=== PATIENT | male | born 1935 | race Caucasian/White ===

== ENCOUNTER → 2016-08-01 | Outpatient (REF) | payer MEDICARE ==
[~2016-08-01] MED LIST: CIPR500T3 PO; DOCU10CA PO; FLAG500T PO; LISI10TA4 PO; PERCOCET PO; REQU0.5T PO; REQU1TAB16 PO; ROPI1TAB PO; ROPI8TAB PO; TYLE167L PO; VITA1TAB23 PO; ZEST1TAB6 PO
== END ==
LOC: CANPREREF → M SFHCPLAZ 11:03
PROVIDERS: ATTEND Internal Medicine
DX: G47.34 Idiopathic sleep related nonobstructive alveolar hypoventilation (principal); I10 Essential (primary) hypertension; Z53.8 Procedure and treatment not carried out for other reasons

== ENCOUNTER → 2016-12-08 | Outpatient (REF) | payer MEDICARE ==
[2016-12-08 18:20] LABS: BASO # 0.1 K/mm3 (0.0-0.2); BASO % 0.7 % (0.0-1.0); EOS # 0.4 K/mm3 (0.0-0.50); EOS % 3.7 % (0.0-3.0); LARGE UNSTAINED CELL # 0.2 K/mm3 (0.0-0.4); LARGE UNSTAINED CELL % 1.8 % (0.0-4.0); LYMPH % 18.5 % (24.0-44.0); MEAN CORPUSCULAR HEMOGLOBIN 30.7 pg (27.0-33.0); MEAN CORPUSCULAR VOLUME 93.2 fl (80.0-96.0); MONO # 0.7 K/mm3 (0.0-0.8); MONO % 6.7 % (0.0-5.0); NEUTROPHILS # 6.9 K/mm3 (1.8-7.7); NEUTROPHILS % 68.6 % (36.0-66.0); PLATELET COUNT, AUTOMATED 235 k/mm3 (150-450); RED CELL DISTRIBUTION WIDTH 13.6 % (11.5-14.5); WHITE BLOOD COUNT 10.1 K/mm3 (4.0-10.0)
[2016-12-08 18:46] LABS: CALCIUM LEVEL 8.9 MG/DL (8.8-10.2); CREATININE FOR GFR 2.45 MG/DL (0.70-1.30); GLOMERULAR FILTRATION RATE 27.1 (>35); POTASSIUM SERUM 4.6 MEQ/L (3.5-5.1)
== END ==
LOC: M LAB REF 16:51
PROVIDERS: ATTEND Physician Assistant
DX: J18.9 Pneumonia, unspecified organism (principal)

== ENCOUNTER → 2016-12-29 | Outpatient (REF) | payer MEDICARE | LOC: M SFHCPLAZ 12:44 | PROVIDERS: ATTEND Internal Medicine | DX: R30.0 Dysuria (principal) ==

== ENCOUNTER → 2017-02-05 | Outpatient (REF) | payer MEDICARE ==
[~2017-02-05] MED LIST changes: -REQU0.5T PO; +REQU1TAB15 PO
[2017-02-05 14:08] LABS: MEAN CORPUSCULAR HEMOGLOBIN 30.3 pg (27.0-33.0); MEAN CORPUSCULAR HGB CONC 32.6 g/dl (32.0-36.5); MEAN CORPUSCULAR VOLUME 92.9 fl (80.0-96.0); RED CELL DISTRIBUTION WIDTH 13.8 % (11.5-14.5); WHITE BLOOD COUNT 8.9 K/mm3 (4.0-10.0)
[2017-02-05 14:42] LABS: FOLATE 7.6 NG/ML
[2017-02-05 14:52] LABS: ALBUMIN 3.8 GM/DL (3.2-5.2); ALBUMIN/GLOBULIN RATIO 0.9 (1.00-1.93); BILIRUBIN,TOTAL 0.3 MG/DL (0.2-1.0); CREATININE FOR GFR 3.42 MG/DL (0.70-1.30); GLOMERULAR FILTRATION RATE 18.5 (>35); POTASSIUM SERUM 5.1 MEQ/L (3.5-5.1)
== END ==
LOC: M SFHCPLAZ 11:11 → M LABDRAW1 11:11
PROVIDERS: ATTEND Internal Medicine
DX: R53.83 Other fatigue (principal); N18.3 Chronic kidney disease, stage 3 (moderate); E78.00 Pure hypercholesterolemia, unspecified
CPT/HCPCS: 36415; 80053; 80061; 81001; 82607; 82746; 83970; 84443; 85027; 87088; 87186; G0463

== ENCOUNTER → 2017-02-14 | Outpatient (REF) | payer MEDICARE ==
[2017-02-14 12:06] LABS: CREATININE FOR GFR 2.68 MG/DL (0.70-1.30); GLOMERULAR FILTRATION RATE 24.5 (>35); MAGNESIUM LEVEL 2.4 MG/DL (1.8-2.4)
[2017-02-14 12:08] LABS: POTASSIUM SERUM 5.3 MEQ/L (3.5-5.1)
== END ==
LOC: M SFHCPLAZ 09:45
PROVIDERS: ATTEND Internal Medicine
DX: N18.3 Chronic kidney disease, stage 3 (moderate) (principal); R33.9 Retention of urine, unspecified
CPT/HCPCS: 36415; 80048; 83735; 83970; 87088; 87186; G0463

== ENCOUNTER → 2017-07-18 | Outpatient (REF) | payer MEDICARE ==
[2017-07-18 14:12] LABS: TOTAL PROTEIN,RANDOM URINE 50.5 MG/DL (0.0-12.0)
[2017-07-18 18:29] LABS: CREATININE, URINE 41.1 MG/DL; MAU/CREAT RATIO 428.2 MCG/MG (0.0-30.0)
== END ==
LOC: M LAB REF 13:26
DX: N18.4 Chronic kidney disease, stage 4 (severe) (principal); R80.9 Proteinuria, unspecified
CPT/HCPCS: 84156

== ENCOUNTER → 2017-08-07 | Outpatient (REF) | payer MEDICARE ==
[2017-08-07 12:49] LABS: HEMATOCRIT 37.3 % (42.0-52.0); HEMOGLOBIN 11.9 g/dl (14.0-18.0); MEAN CORPUSCULAR HEMOGLOBIN 29.8 pg (27.0-33.0); MEAN CORPUSCULAR HGB CONC 31.9 g/dl (32.0-36.5); MEAN CORPUSCULAR VOLUME 93.3 fl (80.0-96.0); PLATELET COUNT, AUTOMATED 228 10^3/uL (150-450); RED CELL DISTRIBUTION WIDTH 13.2 % (11.5-14.5); WHITE BLOOD COUNT 8.5 10^3/uL (4.0-10.0)
[2017-08-07 13:08] LABS: PTH INTACT 91.2 PG/ML (14.0-72.0)
[2017-08-07 13:29] LABS: ALBUMIN 3.7 GM/DL (3.2-5.2); ALBUMIN/GLOBULIN RATIO 0.95 (1.00-1.93); ALKALINE PHOSPHATASE 90 U/L (45-117); ALT/SGPT 11 U/L (12-78); ANION GAP 11 MEQ/L (8-16); AST/SGOT 10 U/L (7-37); BILIRUBIN,TOTAL 0.3 MG/DL (0.2-1.0); BLOOD UREA NITROGEN 65 MG/DL (7-18); CALCIUM LEVEL 8.8 MG/DL (8.8-10.2); CARBON DIOXIDE LEVEL 23 MEQ/L (21-32); CHLORIDE LEVEL 107 MEQ/L (98-107); CHOLESTEROL LEVEL 164 MG/DL (<200); CREATININE FOR GFR 2.97 MG/DL (0.70-1.30); GLOMERULAR FILTRATION RATE 21.7 (>35); GLUCOSE, FASTING 98 MG/DL (70-100); HDL CHOLESTEROL 25 MG/DL (>40); MAGNESIUM LEVEL 2.4 MG/DL (1.8-2.4); NON-HDL-C 139 MG/DL; POTASSIUM SERUM 4.9 MEQ/L (3.5-5.1); SODIUM LEVEL 141 MEQ/L (136-145); TOTAL PROTEIN 7.6 GM/DL (6.4-8.2); TRIGLYCERIDES LEVEL 330 MG/DL (<150)
== END ==
LOC: M SFHCPLAZ 11:37
DX: N18.3 Chronic kidney disease, stage 3 (moderate) (principal); E78.00 Pure hypercholesterolemia, unspecified
CPT/HCPCS: 83735

== ENCOUNTER → 2017-10-01 | Outpatient (REF) | payer MEDICARE ==
[2017-10-01 17:52] LABS: FERRITIN 197 NG/ML (26-388); IRON (FE) 61 UG/DL (65-175); TOTAL IRON BINDING CAPACITY 305 UG/DL (250-450)
== END ==
LOC: M LAB REF 17:03
DX: N18.4 Chronic kidney disease, stage 4 (severe) (principal); R33.9 Retention of urine, unspecified; D63.1 Anemia in chronic kidney disease
CPT/HCPCS: 83550

== ENCOUNTER → 2018-02-05 | Outpatient (REF) | payer MEDICARE ==
[2018-02-05 20:29] LABS: APPEARANCE, URINE TURBID (CLEAR); BACTERIA, URINE AUTO 2+ (NEGATIVE); BILIRUBIN, URINE AUTO NEGATIVE (NEGATIVE); BLOOD, URINE BLOOD 3+ (NEGATIVE); COLOR, URINE YELLOW (YELLOW); GLUCOSE, URINE (UA) AUTO NEGATIVE (NEGATIVE); KETONE, URINE AUTO NEGATIVE (NEGATIVE); LEUKOCYTE ESTERASE, URINE AUTO 3+ (NEGATIVE); NITRITE, URINE AUTO NEGATIVE (NEGATIVE); PROTEIN, URINE AUTO 2+ mg/dL (NEGATIVE); RBC, URINE AUTO 132 /HPF (0-3); SPECIFIC GRAVITY URINE AUTO 1.012 (1.002-1.035); SQUAMOUS EPITHELIAL CELL UR AU 0 /HPF (0-6); UROBILINOGEN, URINE AUTO 0.2 mg/dL (0.0-2.0); WBC, URINE AUTO TNTC /HPF (0-3)
== END ==
LOC: M SFHCPLAZ 11:25
DX: R30.0 Dysuria (principal)
CPT/HCPCS: 81001

== ENCOUNTER 2018-06-14 13:34 | Inpatient (IN) | payer MEDICARE ==
[2018-06-14 14:08] LABS: VENOUS BASE EXCESS -9.3 (-2.0-2.0); VENOUS HCO3 17.3 MEQ/L (23.0-27.0); VENOUS O2 SATURATION 73.3 % (60.0-80.0); VENOUS PARTIAL PRESSURE CO2 40.5 mmHg (38.0-50.0); VENOUS PARTIAL PRESSURE O2 44.5 mmHg (30.0-50.0); VENOUS PH 7.249 UNITS (7.330-7.430); VENOUS STANDARD HCO3 16.6 MEQ/L; VENOUS TOTAL CO2 18.6 MEQ/L (24.0-28.0)
[2018-06-14 14:08] LABS: BEDSIDE GLUCOSE 116 MG/DL (83-110)
[2018-06-14 14:18] LABS: BASO % 0.4 % (0.0-1.0); EOS # 0.2 10^3/uL (0.0-0.50); EOS % 1.5 % (0.0-3.0); HEMATOCRIT 35.8 % (42.0-52.0); IMMATURE GRANULOCYTE % 0.3 % (0-3.0); LYMPH # 1.1 10^3/uL (1.5-4.5); LYMPH % 10.3 % (24.0-44.0); MEAN CORPUSCULAR HEMOGLOBIN 28.6 pg (27.0-33.0); MEAN CORPUSCULAR HGB CONC 30.7 g/dl (32.0-36.5); MONO # 0.7 10^3/uL (0.0-0.8); MONO % 7.2 % (0.0-5.0); NEUTROPHILS # 8.2 10^3/uL (1.8-7.7); NEUTROPHILS % 80.3 % (36.0-66.0); RED BLOOD COUNT 3.85 10^6/uL (4.30-6.10); RED CELL DISTRIBUTION WIDTH 14.7 % (11.5-14.5); WHITE BLOOD COUNT 10.2 10^3/uL (4.0-10.0)
[2018-06-14 14:40] LABS: AMMONIA 39 uMOL/L (<32); LACTIC ACID SEPSIS PROTOCOL 1.4 MMOL/L (0.4-2.0)
[2018-06-14 14:48] LABS: ALBUMIN 3.1 GM/DL (3.2-5.2); ALBUMIN/GLOBULIN RATIO 0.69 (1.00-1.93); ALKALINE PHOSPHATASE 103 U/L (45-117); ALT/SGPT 26 U/L (12-78); ANION GAP 12 MEQ/L (8-16); AST/SGOT 29 U/L (7-37); BILIRUBIN,DIRECT 0.1 MG/DL (0.0-0.2); BILIRUBIN,TOTAL 0.4 MG/DL (0.2-1.0); BLOOD UREA NITROGEN 97 MG/DL (7-18); C REACTIVE PROTEIN QUANTITATIV 5.29 MG/DL (0.00-0.30); CALCIUM LEVEL 8.2 MG/DL (8.8-10.2); CARBON DIOXIDE LEVEL 19 MEQ/L (21-32); CHLORIDE LEVEL 115 MEQ/L (98-107); CPK CREATINE PHOSPHOKINASE 212 U/L (39-308); CREATININE FOR GFR 4.11 MG/DL (0.70-1.30); GLOMERULAR FILTRATION RATE 14.9 (>35); GLUCOSE, FASTING 113 MG/DL (70-100); POTASSIUM SERUM 4.7 MEQ/L (3.5-5.1); SODIUM LEVEL 146 MEQ/L (136-145); TOTAL PROTEIN 7.6 GM/DL (6.4-8.2); TROPONIN I 0.11 NG/ML (< 0.10)
[2018-06-14 15:02] LABS: ERYTHROCYTE SEDIMENTATION RATE 23 mm/hr (0-20)
[2018-06-14] MEDS: NS 500 ML IV (17:16)
[2018-06-14 17:18] LABS: AMORPHOUS SEDIMENT RFX LARGE (NEGATIVE); KETONE, URINE AUTO RFX NEGATIVE (NEGATIVE); LEUKOCYTE ESTERASE UR AUTO RFX 3+ (NEGATIVE); NITRITE, URINE AUTO RFX NEGATIVE (NEGATIVE); RBC, URINE AUTO RFX 40 /HPF (0-3); SQUAM EPITHELIAL CELL UR AURFX 0 /HPF (0-6); WBC, URINE AUTO RFX TNTC /HPF (0-3); YEAST LIKE CELL URINE AUTO RFX SMALL
[2018-06-14] MEDS ORDERED: NS 0.45% 1,000 ML IV (17:30)
[2018-06-14 18:57] LABS: AMPHETAMINES LEVEL URINE NEGATIVE (NEGATIVE); BARBITURATES URINE NEGATIVE (NEGATIVE); BENZODIAZEPINES URINE NEGATIVE (NEGATIVE); CANNABINOIDS URINE NEGATIVE (NEGATIVE); COCAINE METABOLITE URINE NEGATIVE (NEGATIVE); METHADONE URINE NEGATIVE (NEGATIVE); OPIATES URINE NEGATIVE (NEGATIVE); PHENCYCLIDINE URINE NEGATIVE (NEGATIVE)
[2018-06-14] MEDS: cefTRIAXone SOD 1 GM in D5W MINI-BAG PLUS 50 ML IV (19:07)
[2018-06-14] MEDS ORDERED: rOPINIRole 2MG TAB PO (19:30)
[2018-06-14] MEDS ORDERED: LORazepam 0.5 MG TAB PO (19:30)
[2018-06-14] MEDS: **hydrALAZINE** 10 MG TAB PO ×3 (21:00→22:19)
[2018-06-15 06:16] LABS: ALBUMIN 2.6 GM/DL (3.2-5.2); ALBUMIN/GLOBULIN RATIO 0.72 (1.00-1.93); ALKALINE PHOSPHATASE 80 U/L (45-117); ALT/SGPT 21 U/L (12-78); ANION GAP 9 MEQ/L (8-16); AST/SGOT 20 U/L (7-37); BILIRUBIN,TOTAL 0.3 MG/DL (0.2-1.0); BLOOD UREA NITROGEN 86 MG/DL (7-18); CALCIUM LEVEL 7.7 MG/DL (8.8-10.2); CARBON DIOXIDE LEVEL 21 MEQ/L (21-32); CHLORIDE LEVEL 116 MEQ/L (98-107); CREATININE FOR GFR 3.81 MG/DL (0.70-1.30); GLOMERULAR FILTRATION RATE 16.3 (>35); GLUCOSE, FASTING 117 MG/DL (70-100); POTASSIUM SERUM 4.5 MEQ/L (3.5-5.1); SODIUM LEVEL 146 MEQ/L (136-145); TOTAL PROTEIN 6.2 GM/DL (6.4-8.2)
[2018-06-15] MEDS: **hydrALAZINE** 10 MG TAB PO ×4 (09:00→21:00)
[2018-06-15] MEDS: cefTRIAXone SOD 1 GM in D5W MINI-BAG PLUS 50 ML IV (09:33)
[2018-06-15] MEDS: SPIRONOLACTONE 25 MG TAB PO (14:23)
[2018-06-15] MEDS: rOPINIRole 2MG TAB PO (16:45)
[2018-06-15] MEDS: FUROSEMIDE 100 MG/10 ML VIAL (J1940) IV (16:47)
[2018-06-16 05:44] LABS: BASO # 0.1 10^3/uL (0.0-0.2); BASO % 0.6 % (0.0-1.0); EOS # 0.4 10^3/uL (0.0-0.50); EOS % 3.8 % (0.0-3.0); IMMATURE GRANULOCYTE % 0.3 % (0-3.0); LYMPH # 1.1 10^3/uL (1.5-4.5); LYMPH % 10.6 % (24.0-44.0); MEAN CORPUSCULAR HEMOGLOBIN 28.2 pg (27.0-33.0); MEAN CORPUSCULAR HGB CONC 30.3 g/dl (32.0-36.5); MEAN CORPUSCULAR VOLUME 93.2 fl (80.0-96.0); MONO # 0.9 10^3/uL (0.0-0.8); MONO % 8.4 % (0.0-5.0); NEUTROPHILS # 7.9 10^3/uL (1.8-7.7); NEUTROPHILS % 76.3 % (36.0-66.0); RED BLOOD COUNT 3.54 10^6/uL (4.30-6.10); RED CELL DISTRIBUTION WIDTH 14.8 % (11.5-14.5); WHITE BLOOD COUNT 10.4 10^3/uL (4.0-10.0)
[2018-06-16 05:56] LABS: ANION GAP 9 MEQ/L (8-16); BLOOD UREA NITROGEN 86 MG/DL (7-18); CALCIUM LEVEL 7.9 MG/DL (8.8-10.2); CARBON DIOXIDE LEVEL 21 MEQ/L (21-32); CHLORIDE LEVEL 114 MEQ/L (98-107); GLOMERULAR FILTRATION RATE 17.4 (>35); GLUCOSE, FASTING 104 MG/DL (70-100); POTASSIUM SERUM 4.4 MEQ/L (3.5-5.1); SODIUM LEVEL 144 MEQ/L (136-145)
[2018-06-16 06:59] LABS: PLATELET COUNT, AUTOMATED 60 10^3/uL (150-450)
[2018-06-16 07:00] LABS: IMMATURE PLATELET FRACTION % 4.6 % (0.0-10.9)
[2018-06-16] MEDS: **hydrALAZINE** 10 MG TAB PO ×4 (08:56→20:47)
[2018-06-16] MEDS: SPIRONOLACTONE 25 MG TAB PO (08:56)
[2018-06-16] MEDS: FUROSEMIDE 100 MG/10 ML VIAL (J1940) IV ×4 (08:56→23:28)
[2018-06-16] MEDS ORDERED: ENOXAPARIN 30 MG/0.3 ML SYR (J1650) SC (09:00)
[2018-06-16] MEDS: cefTRIAXone SOD 1 GM in D5W MINI-BAG PLUS 50 ML IV (09:34)
[2018-06-16] MEDS: rOPINIRole 2MG TAB PO (17:26)
[2018-06-16] MEDS: TAMSULOSIN 0.4 MG CAP PO (20:48)
[2018-06-17 05:59] LABS: BASO # 0.1 10^3/uL (0.0-0.2); BASO % 0.5 % (0.0-1.0); EOS # 0.4 10^3/uL (0.0-0.50); EOS % 4.6 % (0.0-3.0); HEMATOCRIT 33.4 % (42.0-52.0); HEMOGLOBIN 10.5 g/dl (13.5-17.5); IMMATURE GRANULOCYTE % 0.3 % (0-3.0); LYMPH # 1.1 10^3/uL (1.5-4.5); MEAN CORPUSCULAR HEMOGLOBIN 28.5 pg (27.0-33.0); MEAN CORPUSCULAR HGB CONC 31.4 g/dl (32.0-36.5); MEAN CORPUSCULAR VOLUME 90.5 fl (80.0-96.0); MONO # 0.8 10^3/uL (0.0-0.8); MONO % 8.5 % (0.0-5.0); NEUTROPHILS # 6.8 10^3/uL (1.8-7.7); NEUTROPHILS % 74.1 % (36.0-66.0); RED BLOOD COUNT 3.69 10^6/uL (4.30-6.10); RED CELL DISTRIBUTION WIDTH 15.1 % (11.5-14.5); WHITE BLOOD COUNT 9.1 10^3/uL (4.0-10.0)
[2018-06-17 06:19] LABS: ANION GAP 9 MEQ/L (8-16); BLOOD UREA NITROGEN 81 MG/DL (7-18); CALCIUM LEVEL 8.2 MG/DL (8.8-10.2); CARBON DIOXIDE LEVEL 23 MEQ/L (21-32); CHLORIDE LEVEL 113 MEQ/L (98-107); CREATININE FOR GFR 3.55 MG/DL (0.70-1.30); GLOMERULAR FILTRATION RATE 17.7 (>35); GLUCOSE, FASTING 103 MG/DL (70-100); POTASSIUM SERUM 4.1 MEQ/L (3.5-5.1); SODIUM LEVEL 145 MEQ/L (136-145)
[2018-06-17 06:46] LABS: PLATELET COUNT, AUTOMATED 72 10^3/uL (150-450)
[2018-06-17 06:47] LABS: PLATELET F 2.6
[2018-06-17 06:48] LABS: IMMATURE PLATELET FRACTION % 3.7 % (0.0-10.9)
[2018-06-17] MEDS: cefTRIAXone SOD 1 GM in D5W MINI-BAG PLUS 50 ML IV (08:20)
[2018-06-17] MEDS: FUROSEMIDE 100 MG/10 ML VIAL (J1940) IV ×3 (08:21→23:41)
[2018-06-17] MEDS: SPIRONOLACTONE 25 MG TAB PO (08:22)
[2018-06-17] MEDS: **hydrALAZINE** 10 MG TAB PO ×4 (08:23→20:47)
[2018-06-17] MEDS: rOPINIRole 2MG TAB PO (16:59)
[2018-06-17] MEDS: TAMSULOSIN 0.4 MG CAP PO (20:48)
[2018-06-18] MEDS: LevoFLOXacin 250 MG TABLET PO (05:16)
[2018-06-18 06:37] LABS: BASO # 0.1 10^3/uL (0.0-0.2); BASO % 0.6 % (0.0-1.0); EOS # 0.4 10^3/uL (0.0-0.50); EOS % 4.9 % (0.0-3.0); HEMOGLOBIN 10.2 g/dl (13.5-17.5); IMMATURE GRANULOCYTE % 0.3 % (0-3.0); LYMPH # 1.3 10^3/uL (1.5-4.5); LYMPH % 14.8 % (24.0-44.0); MEAN CORPUSCULAR HEMOGLOBIN 28.2 pg (27.0-33.0); MEAN CORPUSCULAR HGB CONC 30.9 g/dl (32.0-36.5); MEAN CORPUSCULAR VOLUME 91.2 fl (80.0-96.0); MONO # 0.8 10^3/uL (0.0-0.8); MONO % 8.9 % (0.0-5.0); NEUTROPHILS # 6.2 10^3/uL (1.8-7.7); NEUTROPHILS % 70.5 % (36.0-66.0); PLATELET COUNT, AUTOMATED 81 10^3/uL (150-450); RED BLOOD COUNT 3.62 10^6/uL (4.30-6.10); RED CELL DISTRIBUTION WIDTH 14.8 % (11.5-14.5); WHITE BLOOD COUNT 8.8 10^3/uL (4.0-10.0)
[2018-06-18 06:38] LABS: IMMATURE PLATELET FRACTION % 5.4 % (0.0-10.9)
[2018-06-18 07:02] LABS: ANION GAP 9 MEQ/L (8-16); BLOOD UREA NITROGEN 70 MG/DL (7-18); CALCIUM LEVEL 7.7 MG/DL (8.8-10.2); CARBON DIOXIDE LEVEL 24 MEQ/L (21-32); CHLORIDE LEVEL 111 MEQ/L (98-107); CREATININE FOR GFR 3.33 MG/DL (0.70-1.30); GLUCOSE, FASTING 94 MG/DL (70-100); POTASSIUM SERUM 4.1 MEQ/L (3.5-5.1); SODIUM LEVEL 144 MEQ/L (136-145)
[2018-06-18] MEDS: SPIRONOLACTONE 25 MG TAB PO (09:00)
[2018-06-18] MEDS: METOPROLOL SUCC *XL* 12.5MG PER 1/2 TAB (TopROL *XL*) PO (09:45)
[2018-06-18] MEDS: TORSEMIDE 20 MG TAB PO (09:45)
[2018-06-18] MEDS: rOPINIRole 2MG TAB PO (17:28)
== END 2018-06-18 19:03 | disposition home or self-care (01) | DRG 682 ==
LOC: M ED 13:34 → M ED INP 19:19 → M MSPAV 20:26
DX: N17.9 Acute kidney failure, unspecified (principal); I50.43 Acute on chronic combined systolic (congestive) and diastolic (congestive) heart failure; N39.0 Urinary tract infection, site not specified; I13.0 Hypertensive heart and chronic kidney disease with heart failure and stage 1 through stage 4 chronic kidney disease, or unspecified chronic kidney disease; N13.9 Obstructive and reflux uropathy, unspecified; N40.1 Benign prostatic hyperplasia with lower urinary tract symptoms; N18.4 Chronic kidney disease, stage 4 (severe); R33.9 Retention of urine, unspecified; B96.89 Other specified bacterial agents as the cause of diseases classified elsewhere; N13.30 Unspecified hydronephrosis; E78.5 Hyperlipidemia, unspecified; K21.9 Gastro-esophageal reflux disease without esophagitis; G25.81 Restless legs syndrome; Z88.8 Allergy status to other drugs, medicaments and biological substances; Z79.899 Other long term (current) drug therapy; Z95.0 Presence of cardiac pacemaker; Z91.19 Patient's noncompliance with other medical treatment and regimen; Z87.891 Personal history of nicotine dependence

== ENCOUNTER → 2018-06-26 | Outpatient (REF) | payer MEDICARE ==
[2018-06-26 19:34] LABS: FERRITIN 151 NG/ML (26-388); IRON (FE) 47 UG/DL (65-175); TOTAL IRON BINDING CAPACITY 294 UG/DL (250-450)
== END ==
LOC: M LAB REF 17:44
DX: N18.4 Chronic kidney disease, stage 4 (severe) (principal); D63.1 Anemia in chronic kidney disease
CPT/HCPCS: 83550

== ENCOUNTER → 2018-08-30 | Outpatient (REF) | payer MEDICARE ==
[~2018-08-30] MED LIST changes: +ALDA25TA2 PO; +CALC1CAP31 PO; +DEMA20TA6 PO; +FERR325T3 PO; +FLOM0.4C39 PO; +HYDR10TAB PO; +LEVA250T13 PO; +LORA0.5T11 PO; +METO1TAB32 PO; +REQU0.5T PO; -REQU1TAB15 PO; +ROPI2TAB PO; +TORS10TA3 PO; +TORS20TA2 PO; +TYLE1TAB5 PO; +VELT1POW PO
[2018-08-30 12:42] LABS: ALBUMIN 3.7 GM/DL (3.2-5.2); BILIRUBIN,TOTAL 0.3 MG/DL (0.2-1.0); CHOLESTEROL RISK RATIO 6.709 (<5); CREATININE FOR GFR 3.89 MG/DL (0.70-1.30); GLOMERULAR FILTRATION RATE 15.9 (>35); MAGNESIUM LEVEL 2.3 MG/DL (1.8-2.4); POTASSIUM SERUM 4.6 MEQ/L (3.5-5.1); TOTAL PROTEIN 7.8 GM/DL (6.4-8.2)
[2018-08-30 13:17] LABS: HEMOGLOBIN A1c 5.3 %
== END ==
LOC: M SFHCPLAZ 08:50
PROVIDERS: ATTEND Internal Medicine
DX: I10 Essential (primary) hypertension (principal); R73.01 Impaired fasting glucose; E78.00 Pure hypercholesterolemia, unspecified
CPT/HCPCS: 36415; 80053; 80061; 83036; 83735; G0463

== ENCOUNTER → 2018-09-17 | Outpatient (CLI) | payer MEDICARE ==
--- NOTE | 2018-09-17 17:07 | REP ---
Bilateral upper extremity arterial and venous Doppler ultrasound: History: End-stage renal disease. Vein and arterial mapping study. Sonographic findings: There is a left subclavian vein pacemaker noted. There is no evidence of venous thrombosis in the upper extremities on either side. We were not able to visualize the left cephalic vein in the upper arm level. The right brachial artery is noted to be duplicated in the upper arm with brachial artery 81 becoming the ulnar artery and brachial artery 08/02 becoming the radial artery. On the right at the forearm most of the ulnar artery blood flow enters a what appears to be a collateral. Low velocities are seen at the wrist bilaterally. No occlusion or high-grade stenosis is seen however. Right arm venous diameter chart: Upper humerus basilic vein 1.9 mm, cephalic vein 1.5 mm Lower humerus basilic 1.2 mm cephalic a 0.9 mm Upper forearm basilic 1.3 mm cephalic 1.0 mm Wrist basilic 0.7 mm, cephalic 0.9 mm Median cubital 2.1 mm Left arm venous diameter chart: Upper humerus basilic 2.9 mm, cephalic not seen Lower humerus basilic 2.0 mm cephalic not seen Upper forearm basilic 0.7 mm cephalic 1.0 mm Wrist basilic 1.0 mm cephalic 0.9 mm Median cubital 1.8 mm Right upper extremity arterial Doppler velocity and diameter chart: Axillary artery 70.1 cm/S, 5.7 mm Brachial artery 125/87 cm/S, 3.1/3.1 mm Radial artery 41.9 cm/sec, 2.2 mm Ulnar artery 26.5 cm/sec, 1.4 mm Left upper extremity arterial Doppler velocity and diameter chart: Left axillary artery 69.6 cm/S, 6.1 mm Brachial artery 90.9 cm/S, 4.0 mm Radial artery 27.8 centimeters per second, 1.5 mm Ulnar artery 45.6 centimeters per second, 1.7 mm Electronically Signed by Mauri Maxwell MD 09/17/2018 04:57 P
== END ==
LOC: M RAD 13:43
PROVIDERS: ATTEND Surgery Vascular Surgery
DX: N18.6 End stage renal disease (principal); Z95.0 Presence of cardiac pacemaker

== ENCOUNTER 2018-09-20 07:14 | Day surgery (SDC) | payer MEDICARE ==
[~2018-09-20] VITALS: Ht 188 cm; Wt 95.7 kg
[2018-09-20] MEDS ORDERED: fentaNYL 250 MCG/5 ML INJECTION (J3010) As Ordered ONE (08:04)
[2018-09-20] MEDS ORDERED: ONDANSETRON 4MG/2ML VIAL (J2405) As Ordered ONE (08:04)
[2018-09-20] MEDS ORDERED: dexameTHASONE 4 MG/ML 1ML VIAL (J1100) As Ordered ONE ×2 (08:04→08:13)
[2018-09-20] MEDS ORDERED: PROPOFOL 200 MG/20 ML VIAL As Ordered ONE (08:04)
[2018-09-20] MEDS ORDERED: LIDOCAINE 2% INJ 100 MG/5 ML SDV (FOR ANES.) As Ordered ONE (08:04)
[2018-09-20] MEDS ORDERED: MIDAZOLAM INJ 2 MG/2 ML VIAL (J2250) As Ordered ONE (08:04)
[2018-09-20] MEDS ORDERED: KETAMINE HCL 200 MG/20 ML VIAL As Ordered ONE (08:05)
[2018-09-20] MEDS ORDERED: ROCURONIUM BROMIDE 50 MG/5 ML VIAL As Ordered ONE (08:13)
[2018-09-20] MEDS ORDERED: HEPARIN SOD (PORCINE) 5000 UNITS/ML VIAL As Ordered ONE ×2 (08:45→10:09)
[2018-09-20] MEDS ORDERED: LIDOCAINE 1% SDV INJ 30 ML VIAL As Ordered ONE (08:45)
[2018-09-20] MEDS ORDERED: ISOVUE-300 61% 50ML VIAL (Q9967) As Ordered ONE (08:45)
[2018-09-20] MEDS ORDERED: BUPIVACAINE HCL 0.5% 30 ML VIAL As Ordered ONE (08:45)
[2018-09-20] MEDS ORDERED: BUPIVACAINE/EPIN 0.25% 30 ML VIAL As Ordered ONE (09:18)
[2018-09-20] MEDS ORDERED: NS 1,000 ML IV SCH ×2 (09:45→12:45)
[2018-09-20] MEDS ORDERED: ePHEDrine SULFATE 25 MG/5 ML(5MG/ML) SYRINGE As Ordered ONE (10:02)
[2018-09-20] MEDS ORDERED: PHENYLephrine HCL 500 MCG/5 ML (100MCG/ML) SYRINGE (J2370) As Ordered ONE (10:02)
[2018-09-20] MEDS ORDERED: PHENYLEPHRINE INJ 10MG/ML VIAL (J2370) As Ordered ONE (10:03)
[2018-09-20] MEDS ORDERED: PERCOCET PO (12:02)
--- NOTE | 2018-09-20 12:18 | ROOPDOC ---
[facility] Report Of Operation Report of Operation DATE OF PROCEDURE: 09/20/18 PREPROCEDURE DIAGNOSES: Stage IV renal insufficiency, progressing to stage V, requiring access for hemodialysis POSTPROCEDURE DIAGNOSES: Same PROCEDURE: Right brachial axillary AV graft placement SURGEON: Poonam Merritt MD ANESTHESIA: LMA and local INDICATION FOR PROCEDURE: Mr. Diaz is an 82-year-old gentleman with stage IV renal insufficiency rapidly progressing to stage V. We were asked urgently place and access in preparation for the patient to start dialysis. He did not have suitable veins for an AV fistula, so we selected to place a right brachial axillary AV graft. The patient is right-handed, but he has wires from his pacemaker and AICD on the left, which would obstruct his outflow. Thus, we selected the right upper extremity. Wrist, benefits and alternatives were explained to the patient. He was agreeable to proceed. Informed consent was obtained. PROCEDURE: The patient was brought to the OR in stable condition. LMA anesthesia was administered along with antibiotics without complications. His right upper extremity and axilla were prepped and draped in sterile fashion. A timeout was performed. Local anesthesia was a contact center consultant to the skin and subcutaneous tissue over the brachial artery just proximal to the antecubital crease. Skin knife was used to make a longitudinal incision over the artery and this was carried down to the subcutaneous tissue with Bovie cautery. The brachial artery was identified and skeletonized and Vesseloops replace proximally and distally. Local anesthesia was semesters to skin and subcutaneous tissue over the axillary artery pulse. A skin knife was used to make an incision over the artery pulse. This was carried down to subcutaneous tissue with Bovie cautery and the axillary vein was identified. Care was taken to avoid and preserve the nerves. Vesseloops were placed around the distal branches of the vein, and proximally, the vein was skeletonized to allow for bulldog clamp. 3000 units of heparin was given and allowed to circulate by anesthesia. A 4 mm to 6 mm tapered Accu seal Wishon-Lawson graft was tunneled from the antecubital incision to the axillary incision. The distal 4 mm and was beveled for arterial anastomosis. We secured the vessel loops on the brachial artery and a 5 mm arteriotomy was made. The graft was anastomosis to the artery and an end to side fashion with 5-0 hemostatic Prolene suture. Before the final sutures were placed, the inflow and outflow artery were flushed and a clamp was placed on the graft. We then irrigated with heparinized saline and placed her final sutures. Before suturing, we did restore flow through the artery and found good hemostasis. We then secured our Vesseloops on the axillary vein distally and placed a bulldog clamp proximally. A venotomy was made in the proximal end of the graft was beveled for anastomosis. 5-0 Prolene hemostatic suture was used to anastomose the graft to the vein in an end-to-side fashion. Before the final sutures are placed, we flushed the inflow and outflow of the vein and irrigated with Saline, we also flushed from the arterial site as well. We then placed her final sutures and flow was restored through the vein. Good hemostasis was noted at our anastomosis. We irrigated both incisions with copious amounts of saline. We checked the flow at the hand with both palpation and a Doppler. The radial pulse was palpable, the ulnar signal was dopplerable and there was a good Doppler signal across the palmar arch. There was good flow through the graft on Doppler. We then closed the arterial incision with 2 layers of running Vicryl suture and the skin was closed with a running subcuticular Monocryl suture. The wound was clean and dry Mastisol and Steri-Strips were placed. The length of the wound. In the axilla, 4 layers of running Vicryl suture were used to approximate the tissues. 2 layers were below the graft, 2 layers were above the graft, and the skin was closed a running subcuticular Monocryl suture. Mastisol and Steri-Strips were used to dress the wound. Gauze and Tegaderms were placed over the Steri-Strips her final dressing. The patient was then allowed to awaken from anesthesia and taken to PACU in stable condition. ESTIMATED BLOOD LOSS: Approximately 100 mL. DRAINS: None SPECIMENS: None COMPLICATIONS: None REMARKS: 4 mm to 6 mm Accu seal Wishon-Lawson tapered graft POONAM MERRITT MD Sep 20, 2018 12:18
[2018-09-20] MEDS ORDERED: NORCO, ANEXSIA 5/325MG TABLET (HYDROcodone/ACETAMINOPHEN) As Ordered ONE (12:33)
[2018-09-20] MEDS ORDERED: ONDANSETRON 4MG/2ML VIAL (J2405) IV PRN (12:45)
[2018-09-20] MEDS ORDERED: fentaNYL 100 MCG/2 ML INJECTION (J3010) IV PRN (12:45)
[2018-09-20] MEDS ORDERED: NORCO, ANEXSIA 5/325MG TABLET (HYDROcodone/ACETAMINOPHEN) PO PRN (12:45)
[2018-09-20 14:46] VITALS: BP 122/70
--- NOTE | 2018-09-21 17:28 | ECGEPIP ---
Stationary ECG Study [facility] Test Date: 2018-09-20 Pat Name: HARMONY NORTH Department: Room: - Gender: M Conductor Sleeping Car: [facility] : 1935 Requested By: Robles Lopez Order Number: [id number] Reading MD: Mahin Palacio Measurements Intervals [place] Rate: 62 P: -87 MI: 146 QRS: 210 QRSD: 198 T: 21 QT: 486 QTc: 496 Interpretive Statements ELECTRONIC ATRIAL PACEMAKER ELECTRONIC VENTRICULAR PACEMAKER ABNORMAL RHYTHM ECG Electronically Signed On 09-21-2018 17:28:33 EST by Mahin Palacio
== END 2018-09-20 14:59 | disposition home or self-care (01) ==
LOC: M SDC 07:14
PROVIDERS: ATTEND Surgery Vascular Surgery
DX: N18.4 Chronic kidney disease, stage 4 (severe) (principal); I13.0 Hypertensive heart and chronic kidney disease with heart failure and stage 1 through stage 4 chronic kidney disease, or unspecified chronic kidney disease; F41.9 Anxiety disorder, unspecified; F32.9 Major depressive disorder, single episode, unspecified; I50.42 Chronic combined systolic (congestive) and diastolic (congestive) heart failure; E87.5 Hyperkalemia; D63.1 Anemia in chronic kidney disease; N25.81 Secondary hyperparathyroidism of renal origin; N13.9 Obstructive and reflux uropathy, unspecified; R19.7 Diarrhea, unspecified; K21.9 Gastro-esophageal reflux disease without esophagitis; G25.81 Restless legs syndrome; R06.02 Shortness of breath; M12.9 Arthropathy, unspecified; N40.0 Benign prostatic hyperplasia without lower urinary tract symptoms; T88.59XD Other complications of anesthesia, subsequent encounter; Z88.8 Allergy status to other drugs, medicaments and biological substances; Z79.899 Other long term (current) drug therapy; Z95.0 Presence of cardiac pacemaker; Z95.810 Presence of automatic (implantable) cardiac defibrillator; Z87.891 Personal history of nicotine dependence; Z87.81 Personal history of (healed) traumatic fracture; Z96.652 Presence of left artificial knee joint
CPT/HCPCS: 36830; 93005; C1768; J0690; J1100; J2250; J2370; J2405; J3010

== ENCOUNTER → 2019-01-03 | Outpatient (REF) | payer MEDICARE ==
[2019-01-03 18:59] LABS: CHOLESTEROL LEVEL 215 MG/DL (<200); CHOLESTEROL RISK RATIO 6.323 (<5); HDL CHOLESTEROL 34 MG/DL (>40); LDL CHOLESTEROL 119 MG/DL (<100); NON-HDL-C 181 MG/DL; TRIGLYCERIDES LEVEL 310 MG/DL (<150)
[2019-01-06 11:28] LABS: HEPATITIS B SURFACE ANTIBODY NEGATIVE (POSITIVE)
[2019-01-06 11:36] LABS: HEPATITIS B SURFACE ANTIGEN NEGATIVE (NEGATIVE)
[2019-01-06 11:57] LABS: HEPATITIS C VIRUS ABY INDEX 0.1 INDEX (<0.8)
[2019-01-06 11:59] LABS: HEPATITIS B CORE ANTIBODY IGM NEGATIVE (NEGATIVE)
== END ==
LOC: M LAB REF 13:12
PROVIDERS: ATTEND Internal Medicine Nephrology
DX: N18.5 Chronic kidney disease, stage 5 (principal)

== ENCOUNTER → 2019-04-18 | Outpatient (CLI) | payer MEDICARE ==
[~2019-04-18] MED LIST changes: +ALTEPLASE 2 MG/2 ML VIAL (J2997 PER 1MG) As Ordered ONE; +ELIQ5TAB PO; +HEPARIN 1,000 UNITS/ML 10ML VIAL (FOR RADIOLOGY& DIALYSIS ONLY) As Ordered ONE; +ISOVUE-300 61% 50ML VIAL (Q9967) As Ordered ONE; +LIDOCAINE 1% MDV 20ML VIAL As Ordered ONE; -LORA0.5T11 PO; +LORA0.5T5 PO; +MIDAZOLAM INJ 2 MG/2 ML VIAL (J2250) As Ordered ONE; +diphenhydrAMINE INJ 50MG/ML VIAL (J1200) As Ordered ONE; +fentaNYL 100 MCG/2 ML INJECTION (J3010) As Ordered ONE
[2019-04-18 13:52] LABS: HEMATOCRIT 36.9 % (42.0-52.0); HEMOGLOBIN 12.4 g/dl (13.5-17.5); MEAN CORPUSCULAR HEMOGLOBIN 32.5 pg (27.0-33.0); MEAN CORPUSCULAR HGB CONC 33.6 g/dl (32.0-36.5); MEAN CORPUSCULAR VOLUME 96.9 fl (80.0-96.0); PLATELET COUNT, AUTOMATED 192 10^3/uL (150-450); RED BLOOD COUNT 3.81 10^6/uL (4.30-6.10); WHITE BLOOD COUNT 8.4 10^3/uL (4.0-10.0)
[2019-04-18 14:03] LABS: CALCIUM LEVEL 9.9 MG/DL (8.8-10.2); CREATININE FOR GFR 4.91 MG/DL (0.70-1.30); GLOMERULAR FILTRATION RATE 12.1 (>35)
--- NOTE | 2019-04-18 16:19 | ROOPDOC ---
[facility] Report Of Operation Report of Operation DATE OF PROCEDURE: 04/18/19 PREPROCEDURE DIAGNOSES: Stage IV renal insufficiency, thrombosed right upper extremity brachial axillary AV graft POSTPROCEDURE DIAGNOSES: Same PROCEDURE: 1. Ultrasound-guided antegrade and retrograde access right brachial axillary AV graft 2. Fistulogram and central venogram 3. TPA declot procedure AV graft with 7 x 40 [place] balloon and 6 x 40 [place] balloon 4. Angioplasty proximal axillary anastomosis with 7 x 40 [place] balloon and 8 x 100 [place] balloon 5. Angioplasty distal brachial artery anastomosis with 5 x 100 [place] balloon and 6 x 40 [place] balloon 6. Completion fistulogram SURGEON: Poonam Merritt MD ANESTHESIA: 8 mL 1% lidocaine local anesthesia. Moderate intravenous conscious sedation was administered by Dr. Merritt. The patient was also monitored by an independent nurses assigned to the Department of radiology with automated blood pressure, EKG, and pulse oximetry. The detailed conscious sedation record is permanently stored in the hospital information system. The following is the brief sedation record: Start time 14:55, stop Time 15:59, fentanyl 75 g IV, Versed 0.5 mg IV, heparin 5000 units IV. CONTRAST: 29 mL Isovue INDICATION FOR PROCEDURE: Mr. Page is a very pleasant 83-year-old gentleman stage IV renal insufficiency not yet on dialysis with an 8 month history of right upper extremity tracheal axillary AV graft, now thrombosed. It is unclear how long the graft has been thrombosed, but when I saw him in clinic and examined with ultrasound, the graft was still fairly soft and I was hopeful that the thrombus may be somewhat fresh and possibly subacute instead of chronic. Since he has such limited options for access, I discussed with him the risks benefits and alternatives to a declot procedure. The patient and his were extensively counseled and all questions were answered. Informed consent was obtained. INTERPRETATION: 1. The entire graft was completely thrombosed. 14 mg of TPA and a declot procedure were able to clear the majority of thrombus from the graft. Scant remaining thrombus was present after an extensive procedure. 2. There was a 50% stenosis and outflow vein of the axillary vein and at the distal anastomosis which were improved after angioplasty with a 7 x 40 and 8 x 100 [place] balloon's. Less than 10% residual stenosis remained. This dramatically improved the outflow. 3. 70% stenosis present at the proximal anastomosis and the brachial artery, which was less than 10% residual stenosis after angioplasty with a 5 x 106 x 40 [place] balloon. 4. Widely patent flow was seen through the fistula into the central system after angioplasty and declot. REPORT OF OPERATION: The patient was brought to the angiographic suite in stable in stable condition and placed supine on the fluoroscopic table. His right upper extremity was prepped and draped in a sterile fashion. A timeout was performed. Sedation was administered without complication. Local anesthesia was adm inistered to the skin and subcutaneous tissue over the graft near the AV anastomosis and the axillary anastomosis. Antegrade and retrograde access were obtained under ultrasound guidance and a wire was passed through each access and a micro-sheath was placed. Glidewire replaced antegrade and retrograde through 8 the access and 6 [place] sheath replaced and flushed with saline. We dealt first with the outflow and a Glidewire was carefully advanced through the thrombosed fistula into the axillary vein. This was a bit challenging but we were able to navigate it with a glide. We did administer 10 mg of TPA throughout the graft in the mid distal portion and outflow. This allowed us to pass a 7 x 40 balloon across the anastomosis and antiplastic the outflow followed by an 8 x 100 [place] balloon to angioplasty the outflow in the axillary vein. No significant stenosis is present after angioplasty. We then did a push pull method of declot by using our retrograde access to pull clot from the arterial side and are anteg rade access to push clot towards the venous side with the 6 x 40 balloon 7 x 40 balloon. This was performed several times and successfully Cleared the majority of clot from the graft. We then flushed with copious amounts of saline and heparin was given IV during the procedure. Additional 4 mg of TPA was given near the arterial anastomosis to help clear the remaining thrombus. We then angioplasties across the arterial anastomosis with a 6 x 40 balloon, which seemed a little large for the anastomosis, so we switched to a 5 x 100 balloon and this provided excellent inflow to our graft. We flushed again with copious amounts of heparinized saline while spinning the glide cath within the graft to help clear any remaining thrombus. Our final images showed scant remaining thrombus within the wall of the graft but the majority had excellent brisk flow and rate outflow to the central system. The hand remained warm and well perfused. This concluded R procedure. Prolene sutures were placed at the exit sites of the catheters and the sheaths were removed. Pressure was held for hemostasis and sterile dressings were applied. The patient was taken to recovery in stable condition. He tolerated the procedure well and will be discharged after monitoring post sedation. ESTIMATED BLOOD LOSS: Approximately 5 mL. COMPLICATIONS: None. PLAN: Our plan is to monitor the patient closely for rethrombosis of his graft. Unfortunately, since the patient is not yet on dialysis, he is at risk for thrombosis of the graft. He does not have a lot of options for access since he has a pacemaker on the left, and very poor veins at his advanced age. Therefore, if at all possible, we need to salvage this graft. I will discuss with him whether not he be willing to be on anticoagulation for now. At the very minimum, we like him to take Plavix. It is okay to use a graft for dialysis it should he need it. POONAM MERRITT MD Apr 18, 2019 16:19
[2019-04-18 17:46] VITALS: BP 103/66
== END ==
LOC: M IRPRO 12:39
PROVIDERS: ATTEND Surgery Vascular Surgery
DX: T82.868A Thrombosis due to vascular prosthetic devices, implants and grafts, initial encounter (principal); N18.4 Chronic kidney disease, stage 4 (severe); X58.XXXA Exposure to other specified factors, initial encounter; Y93.9 Activity, unspecified; Y92.9 Unspecified place or not applicable; Y99.9 Unspecified external cause status
CPT/HCPCS: 36905; 36907; 80048; 85027; C1725; C1769; C1887; C1894; J2250; J2997; J3010; Q9967

== ENCOUNTER → 2019-05-16 | Outpatient (CLI) | payer MEDICARE ==
[~2019-05-16] MED LIST changes: -ALTEPLASE 2 MG/2 ML VIAL (J2997 PER 1MG) As Ordered ONE; -HEPARIN 1,000 UNITS/ML 10ML VIAL (FOR RADIOLOGY& DIALYSIS ONLY) As Ordered ONE; -ISOVUE-300 61% 50ML VIAL (Q9967) As Ordered ONE; -LIDOCAINE 1% MDV 20ML VIAL As Ordered ONE; +LORA0.5T11 PO; -LORA0.5T5 PO; -MIDAZOLAM INJ 2 MG/2 ML VIAL (J2250) As Ordered ONE; -diphenhydrAMINE INJ 50MG/ML VIAL (J1200) As Ordered ONE; -fentaNYL 100 MCG/2 ML INJECTION (J3010) As Ordered ONE
--- NOTE | 2019-05-16 10:29 | REP ---
Clinical: Abdominal pain and chronic renal disease. Knee: Real time wu scale ultrasound examination using curved array transducer. Findings: Liver and visualized pancreas are normal in contour, size, echogenicity without focal hepatic or pancreatic lesion identified. The spleen is enlarged and measures 12.5 cm maximal length with a splenic index of 754. No focal splenic lesion identified. Evidence for prior cholecystectomy without biliary ductal dilatation. The common bile duct measures 6 mm diameter. Right kidney is normal in reniform shape with increased central sinus fat and small 9 mm mid pole cortical cyst. The left kidney is normal in reniform shape with increased central sinus fat. While there is no evidence for significant hydronephrosis, the visualized mid to distal bilateral ureters appear chronically dilated to approximately 9 mm as they approach the ureteral vesicle junction and bladder. The bladder itself is grossly unremarkable in appearance although mild wall thickening cannot definitively be excluded. Abdominal aorta demonstrates atherosclerotic changes and measures 1.9 cm maximal diameter. No ascites. Impression: 1. Splenomegaly without focal splenic lesion identified. 2. Evidence for chronic medical renal disease as well as visualized dilatation to the mid/distal bilateral ureters which is likely chronic and was previously identified on CT dated 06/14/2018. Electronically Signed by Sanchez Man MD 05/16/2019 10:20 A
== END ==
LOC: M RAD 08:00
PROVIDERS: ATTEND Internal Medicine Nephrology
DX: R16.1 Splenomegaly, not elsewhere classified (principal); N18.5 Chronic kidney disease, stage 5; I50.42 Chronic combined systolic (congestive) and diastolic (congestive) heart failure; R18.8 Other ascites

== ENCOUNTER → 2019-05-16 | Outpatient (CLI) | payer MEDICARE ==
[~2019-05-16] MED LIST changes: +ISOVUE-300 61% 50ML VIAL (Q9967) As Ordered ONE; +LIDOCAINE 1% MDV 20ML VIAL As Ordered ONE; +MIDAZOLAM INJ 2 MG/2 ML VIAL (J2250) As Ordered ONE; +fentaNYL 100 MCG/2 ML INJECTION (J3010) As Ordered ONE
== END ==
LOC: M IRPRO 15:20
PROVIDERS: ATTEND Surgery Vascular Surgery
DX: N18.6 End stage renal disease (principal)

== ENCOUNTER → 2019-06-25 | Outpatient (CLI) | payer MEDICARE ==
--- NOTE | 2019-06-25 08:38 | ROOPDOC ---
[facility] Report Of Operation Report of Operation DATE OF PROCEDURE: 06/25/19 PREPROCEDURE DIAGNOSES: Stage IV renal failure with thrombosis of right brachial axillary PTFE graft POSTPROCEDURE DIAGNOSES: Same PROCEDURE: 1. Ultrasound-guided access right AV graft 2. Right upper extremity fistulogram SURGEON: Poonam Mreritt MD ANESTHESIA: Local anesthesia to milliliters lidocaine. No sedation. INDICATION FOR PROCEDURE: This is a very pleasant 83-year-old gentleman not yet on dialysis who had a right brachial axillary PTFE graft placed for dialysis access approximate 1 year ago. At that time, there was concern the patient would need dialysis right away. In actuality, he has been teetering on dialysis for the last year and has not used the graft. Without use, PTFE grafts have extremely poor patency rates, although the patency rates are also not much improved when in use for dialysis but there is closer monitoring. The patient was noted to have thrombosis of his graft and underwent a declot procedure a few months ago. He was placed on eliquis, but the graft thrombosed again. We brought him in several times over the past month for attempted declot, but every time the patient ate before the procedure. We rescheduled many times. Today, the patient is nothing by mouth and we will proceed with attempted declot procedure. He says he has not taken his eliquis in almost a month. Unfortunately, I'm not sure we will be able to salvage the graft. I discussed with him that if we cannot declot the graft, when and if he needs dialysis, we will place a PermCath and address further access at that time. He has no autologous options, and no options for left-sided graft, so a second graft on the right side is a challenge. Depending on his situation, this may be our only option for long-term dialysis access. However, to start, we will place a PermCath if urgent dialysis as needed. Risks benefits and alternatives to fistulogram and declot procedure were explained to the patient he is agreeable to proceed. Informed consent was obtained. INTERPRETATION: 1. The arterial graft anastomosis is patent, but the distal raft is thrombosed with no outflow noted through the axillary vein. 2. Attempt to cross into the axillary vein was aborted after 20 minutes due to extravasation at the distal graft-axillary vein junction. This precludes the use of TPA, ongoing heparin, or additional attempts for balloon thrombectomy. Pressure was held over the axilla for 15 minutes and following this no active extravasation was noted. No further attempts for declot will be performed. REPORT OF OPERATION: Patient was brought to the angiographic suite in stable condition. His right upper extremity and axillary prepped and draped in a sterile fashion. A timeout was performed. Local anesthesia was Mr. to the skin and subcutaneous tissue over the graft. A microneedle was used to access the graft under fluoroscopic guidance. A wire was passed through this access into the graft and a micro-sheath was placed. No blood return was noted initially on placement of the sheath. A gentle infusion of heparinized saline was injected through the micro-sheath. We did have sluggish blood return following this. A Glidewire was advanced through this access and a 6 [place] sheath was placed and flushed with saline. Flow was noted through the graft proximally and the brachial artery was widely patent, but there is no outflow. We were able to cross through the graft to the distal aspect but could not navigate into the axillary vein. We then added applied cath to help with crossing, and attempted to do so for approximately 20 minutes. The wire continually coiled at the venous end of the graft near the anastomosis, and we were not able to access the axillary vein. Despite continued attempts, this was unsuccessful. Eventually, the wire did extend past the graft, but I did not feel it was in an amateur comical venous position and contrast confirmed extravasation. Pressure was held over the axilla for 5 minutes but there was still extravasation, so pressure was held over the axilla for 15 minutes and following this there was no extravasation. With this extravasation, we cannot safely continue to try to cross into the axillary vein, we cannot give TPA, we cannot give ongoing heparin, and we cannot to a balloon push and pull thrombectomy. Therefore, this concludes her procedure for today. The graft cannot be salvaged. The suture was placed in a [id number] pattern around the sheath site and the sheath was removed. Pressure was held and sterile dressings were applied. The patient tolerated the procedure well. No bruising or swelling was noted at the axilla at the end of the procedure. We will keep the patient for an hour to make sure he does not develop a hematoma or bruising at the axilla. Following this, a few sta ble, he will be discharged home. ESTIMATED BLOOD LOSS: Approximately 2 mL. COMPLICATIONS: None. PLAN: The patient does not need to continue eliquis. He has issues with affording the medication and compliance, and since we cannot salvage the graft, it is no longer necessary for him to be on full anticoagulation. Should he need dialysis, we will plan to place a PermCath. He has no autologous options, and no options for left-sided graft, so a second graft on the right side is a challenge. Especially since his axillary vein may be completely thrombosed. Nevertheless, depending on his situation, this may be our only option for long- term dialysis access if necessary. However, to start, we will place a PermCath if urgent dialysis as needed. Patient is were counseled and are agreeable to this plan. POONAM MERRITT MD Jun 25, 2019 08:38
[2019-06-25 09:56] VITALS: BP 159/70
== END ==
LOC: M IRPRO 06:47
PROVIDERS: ATTEND Surgery Vascular Surgery
DX: T82.868A Thrombosis due to vascular prosthetic devices, implants and grafts, initial encounter (principal); N18.4 Chronic kidney disease, stage 4 (severe); X58.XXXA Exposure to other specified factors, initial encounter; Y93.9 Activity, unspecified; Y92.9 Unspecified place or not applicable; Y99.9 Unspecified external cause status

== ENCOUNTER → 2019-07-24 | Outpatient (REF) | payer MEDICARE ==
[~2019-07-24] MED LIST changes: -ISOVUE-300 61% 50ML VIAL (Q9967) As Ordered ONE; -LIDOCAINE 1% MDV 20ML VIAL As Ordered ONE; -MIDAZOLAM INJ 2 MG/2 ML VIAL (J2250) As Ordered ONE; -fentaNYL 100 MCG/2 ML INJECTION (J3010) As Ordered ONE
[2019-07-24 19:36] LABS: ALBUMIN 3.7 GM/DL (3.2-5.2); CREATININE FOR GFR 4.85 MG/DL (0.70-1.30); GLOMERULAR FILTRATION RATE 12.3 (>35); MAGNESIUM LEVEL 2.4 MG/DL (1.8-2.4)
== END ==
LOC: M LAB REF 17:32
PROVIDERS: ATTEND Internal Medicine Nephrology
DX: N18.4 Chronic kidney disease, stage 4 (severe) (principal)

== ENCOUNTER → 2020-01-28 | Outpatient (CLI) | payer MEDICARE ==
[~2020-01-28] MED LIST changes: -LORA0.5T11 PO; +LORA0.5T5 PO; -ROPI1TAB PO; +ROPI1TAB3 PO; -ROPI2TAB PO; +ROPI2TAB3 PO; -VITA1TAB23 PO; +VITA250T26 PO
[2020-01-28 13:53] LABS: HEMATOCRIT 35.9 % (42.0-52.0); HEMOGLOBIN 11.3 g/dl (13.5-17.5); MEAN CORPUSCULAR HEMOGLOBIN 30.2 pg (27.0-33.0); MEAN CORPUSCULAR HGB CONC 31.5 g/dl (32.0-36.5); PLATELET COUNT, AUTOMATED 170 10^3/uL (150-450); RED BLOOD COUNT 3.74 10^6/uL (4.30-6.10); WHITE BLOOD COUNT 8.6 10^3/uL (4.0-10.0)
[2020-01-28 14:01] LABS: HEMOGLOBIN A1c 5.7 %
[2020-01-28 14:13] LABS: ALBUMIN 3.7 GM/DL (3.2-5.2); BILIRUBIN,TOTAL 0.4 MG/DL (0.2-1.0); CALCIUM LEVEL 9.5 MG/DL (8.8-10.2); CHOLESTEROL RISK RATIO 6.413 (<5); CREATININE FOR GFR 4.58 MG/DL (0.70-1.30); GLOMERULAR FILTRATION RATE 13.1 (>35); MAGNESIUM LEVEL 2.4 MG/DL (1.8-2.4); POTASSIUM SERUM 5.7 MEQ/L (3.5-5.1); TOTAL PROTEIN 7.4 GM/DL (6.4-8.2)
== END ==
LOC: M PLALAB 09:17
PROVIDERS: ATTEND Internal Medicine
DX: I12.9 Hypertensive chronic kidney disease with stage 1 through stage 4 chronic kidney disease, or unspecified chronic kidney disease (principal); N18.4 Chronic kidney disease, stage 4 (severe); R73.01 Impaired fasting glucose; E78.00 Pure hypercholesterolemia, unspecified
CPT/HCPCS: 36415; 51798; 80053; 80061; 83036; 83735; 85027; G0463

== ENCOUNTER → 2020-02-27 | Outpatient (CLI) | payer MEDICARE ==
--- NOTE | 2020-04-09 15:04 | REP ---
LUMBAR SPINE: SIX VIEWS HISTORY: Back pain after a fall. FINDINGS: There is a mild levoconvex curvature on the frontal view. There are clips in the right upper quadrant of the abdomen. Vascular calcification is noted. There is diffuse degenerative disk disease with discogenic spurring. Degenerative disk disease is most pronounced at L4-5 where there is vacuum phenomenon and sclerosis. No fracture or collapse is seen. No malalignment. Sacrum and SI joints are unremarkable. Psoas margins are symmetric. Bowel gas pattern is normal. IMPRESSION: Scoliosis and degenerative spondylosis changes. No fracture or other acute bony abnormality. MTDD
--- NOTE | 2020-04-09 15:05 | REP ---
THORACIC SPINE SERIES: HISTORY: Back pain after a fall. COMPARISON: 06/14/18 FINDINGS: A multilead pacemaker is seen in the heart via the left side. There is mild linear fibrosis in the right lung base, unchanged. The thoracic vertebral body heights are preserved. There is discogenic spurring throughout the thoracic spine. No fracture or collapse is apparent. The pedicles and posterior elements are intact. Degenerative disc changes are seen in the cervical spine. IMPRESSION: No traumatic abnormality noted. Fairly extensive degenerative disc disease. No fracture seen. MTDD
== END ==
LOC: M WUC 15:53
PROVIDERS: ATTEND Nurse Practitioner Family
DX: M54.5 Low back pain (principal)

== ENCOUNTER 2020-05-10 12:25 | Emergency (ER) | payer MEDICARE ==
[~2020-05-10] VITALS: Ht 188 cm; Wt 97.7 kg
--- NOTE | 2020-05-10 13:46 | REP ---
INDICATION: hit hand during fall. Right hand pain. COMPARISON: None. TECHNIQUE: Four views. FINDINGS: Four views of the right hand demonstrate diffuse osteopenia. There is multifocal arthropathy with erosive changes affecting the 1st metacarpophalangeal joint, and the the finger PIP joints. There is osteoarthritic change at the DIP joint of the index and long fingers. Erosions are seen in the distal end of the ulna and there is an old ununited ulnar styloid fracture fragment. In addition, there is an obliquely oriented acute fracture through the 5th metacarpal in the proximal diaphyseal region with associated swelling. No other acute fracture is seen. IMPRESSION: Acute fracture 5th metacarpal with slight override and associated swelling. Diffuse osteopenia. Erosive multifocal arthropathy.. <Electronically signed by Nabeel Maxwell > 05/10/20 [id number]
[2020-05-10 14:45] VITALS: BP 133/60
== END 2020-05-10 16:38 | disposition home or self-care (01) ==
LOC: M ED 12:25
DX: S62.340A Nondisplaced fracture of base of second metacarpal bone, right hand, initial encounter for closed fracture (principal); W01.198A Fall on same level from slipping, tripping and stumbling with subsequent striking against other object, initial encounter; Y92.9 Unspecified place or not applicable; Y93.9 Activity, unspecified; Y99.9 Unspecified external cause status; N18.5 Chronic kidney disease, stage 5; Z79.891 Long term (current) use of opiate analgesic; Z79.899 Other long term (current) drug therapy; Z88.8 Allergy status to other drugs, medicaments and biological substances

== ENCOUNTER → 2020-06-16 | Outpatient (REF) ==
[2020-06-16 11:49] LABS: AMORPHOUS SEDIMENT SMALL (NEGATIVE); APPEARANCE, URINE TURBID (CLEAR); BACTERIA, URINE AUTO 2+ (NEGATIVE); BILIRUBIN, URINE AUTO NEGATIVE (NEGATIVE); BLOOD, URINE BLOOD 2+ (NEGATIVE); COLOR, URINE YELLOW (YELLOW); GLUCOSE, URINE (UA) AUTO NEGATIVE (NEGATIVE); KETONE, URINE AUTO NEGATIVE (NEGATIVE); LEUKOCYTE ESTERASE, URINE AUTO 3+ (NEGATIVE); NITRITE, URINE AUTO NEGATIVE (NEGATIVE); PROTEIN, URINE AUTO 2+ mg/dL (NEGATIVE); RBC, URINE AUTO 2 /HPF (0-3); SPECIFIC GRAVITY URINE AUTO 1.011 (1.002-1.035); SQUAMOUS EPITHELIAL CELL UR AU 1 /HPF (0-6); UROBILINOGEN, URINE AUTO 0.2 mg/dL (0.0-2.0); WBC, URINE AUTO TNTC /HPF (0-3)
== END ==
LOC: M LAB REF 11:20
PROVIDERS: ATTEND Internal Medicine
DX: R30.0 Dysuria (principal)